=== PATIENT | female | born 1965 | race Asian ===

== ENCOUNTER 2019-05-02 15:43 | Emergency (ER) | payer OTHER ==
[~2019-05-02] VITALS: Ht 157.5 cm; Wt 50.2 kg
[2019-05-02 15:47] VITALS: Ht 157.5 cm; Wt 50.2 kg
--- NOTE | 2019-05-02 16:17 | ERD ---
ER Documentation Chief Complaint Chief Complaint CALLED DUE LOW HGB, WAS TOLD TO GO TO ER, LAST DIALYSIS LAST HPI 53-year-old female with history of hypertension and end-stage renal disease on dialysis Monday//Monday referred to the ED for anemia and hemoglobin of 5.5 g/dl. Patient is otherwise asymptomatic. Denies chest pain, palpitations or shortness of breath. No exertional dyspnea or orthopnea. No ab dominal pain, nausea vomiting. No hematochezia or melanotic stools. Denies headache or weakness. No fevers or chills. ROS All systems reviewed and are negative except as per history of present illness. PMhx/Soc History of Surgery: Yes (Right AshSplit dialysis catheter) Hx Neurological Disorder: No Hx Respiratory Disorders: No Hx Cardiac Disorders: Yes Hx Psychiatric Problems: No Hx Miscellaneous Medical Probl: Yes (End-stage renal disease on dialysis) Hx Alcohol Use: No Hx Substance Use: No Hx Tobacco Use: No FmHx No family history relevant to presenting complaint Physical Exam Vitals Vital Signs Date Temp Pulse Resp B/P (MAP) Pulse Ox O2 O2 Flow FiO2 Time Delivery Rate 05/02/19 94 23 135/72 97 Room Air 17:42 (93) 05/02/19 98.2 89 18 150/72 99 15:47 (98) Physical Exam Const: No acute distress Head: Atraumatic Eyes: Pale Conjunctiva ENT: Normal External Ears, Nose and Mouth. His membranes moist. Neck: Full range of motion. Nontender. No JVD.. Resp: Breath sounds are equal and clear to auscultation bilaterally. No rales rhonchi or wheezes. Cardio: Regular rate and rhythm, no murmurs Chest Wall: Dialysis catheter right chest wall. Nontender. No erythema, induration or drainage. Abd: Soft, non tender, non distended. Normal bowel sounds Skin: No petechiae or rashes Back: No midline or flank tenderness Ext: No cyanosis, or edema Neur: Awake and alert. No focal deficit Psych: Normal Mood and Affect Result Diagram: 05/02/19 1632 05/02/19 1632 Results 24 hrs Laboratory Tests Test 05/02/19 16:32 White Blood Count 6.0 10^3/ul Red Blood Count 2.55 10^6/ul Hemoglobin 7.1 g/dl Hematocrit 23.0 % Mean Corpuscular Volume 90.2 fl Mean Corpuscular Hemoglobin 27.8 pg Mean Corpuscular Hemoglobin Concent 30.9 g/dl Red Cell Distribution Width 15.4 % Platelet Count 167 10^3/UL Mean Platelet Volume 11.3 fl Immature Granulocytes % 0.300 % Neutrophils % 69.2 % Lymphocytes % 18.3 % Monocytes % 5.7 % Eosinophils % 5.0 % Basophils % 1.5 % Nucleated Red Blood Cells % 0.0 /100WBC Immature Granulocytes # 0.020 10^3/ul Neutrophils # 4.2 10^3/ul Lymphocytes # 1.1 10^3/ul Monocytes # 0.3 10^3/ul Eosinophils # 0.3 10^3/ul Basophils # 0.1 10^3/ul Nucleated Red Blood Cells # 0.0 10^3/ul Sodium Level 139 mmol/L Potassium Level 5.1 mmol/L Chloride Level 96 mmol/L Carbon Dioxide Level 36 mmol/L Anion Gap 7 Blood Urea Nitrogen 24 mg/dl Creatinine 4.96 mg/dl Est Glomerular Filtrat Rate mL/min 9 mL/min Glucose Level 212 mg/dl Calcium Level 8.3 mg/dl Procedures/MDM DOCUMENTS REVIEWED: ED nurse, no prior records MEDICAL DECISION MAKIN-year-old female with history of hypertension and end-stage renal disease on dialysis Monday//Monday referred to the ED for anemia and hemoglobin of 5.5 g/dl. CBC reveals hemoglobin of 7.1 g/dL. Chemistry significant for elevated BUN/creatinine but no significant electrolyte abnormalities. No prior labs available for comparison. Patient presents with anemia likely due to her end-stage renal disease. No evidence of GI bleeding or acute blood loss. Hemodynamically stable. No indication for acute transfusion at this point. Stable for discharge with precautionary instructions and outpatient follow-up as counseled. Counseled patient and family regarding diagnostic workup, diagnosis and need for followup. Understands to return to ED if symptoms recur, worsen or any other concerns. Departure Diagnosis: Primary Impression: Anemia Anemia type: unspecified type Qualified Codes: D64.9 - Anemia, unspecified Additional Impressions: End stage renal disease on dialysis Accelerated hypertension Condition: Stable BO WOLFF MD May 02, 2019 16:17
[2019-05-02 17:42] VITALS: BP 135/72; PULSE 94; RESP 23
== END 2019-05-02 18:11 | disposition home or self-care (01) ==
LOC: E/R 15:43
DX: D64.9 Anemia, unspecified (principal); I12.0 Hypertensive chronic kidney disease with stage 5 chronic kidney disease or end stage renal disease; N18.6 End stage renal disease; Z99.2 Dependence on renal dialysis
CPT/HCPCS: 80048; 85025; 86850; 86900; 86901; Z7502; 99283